=== PATIENT | female | born 1970 | race Caucasian/White ===

== ENCOUNTER 2018-07-19 06:05 | Day surgery (SDC) | payer OTHER ==
[2018-07-19] MEDS ORDERED: LIDOCAINE 4% SOLUTION 50 ML BTL (07:57)
[2018-07-19] MEDS ORDERED: FENTAnyl 50 MCG/ML VIAL (09:35)
[2018-07-19] MEDS ORDERED: MIDAZOLAM 1 MG/ML 2 ML INJ ×3 (09:35)
== END 2018-07-19 10:37 | disposition home or self-care (01) ==
LOC: GIL 06:05
DX: K29.30 Chronic superficial gastritis without bleeding (principal); K44.9 Diaphragmatic hernia without obstruction or gangrene
CPT/HCPCS: 43239; 84703; 88305; 88312